=== PATIENT | female | born 1970 | race Caucasian/White ===

== ENCOUNTER 2016-08-19 20:16 | Emergency (ER) | payer OTHER ==
[~2016-08-19] VITALS: Ht 172.7 cm; Wt 75.9 kg
[2016-08-19 20:29] VITALS: TEMP 36.8; Ht 172.7 cm; Wt 75.9 kg
[2016-08-19] MEDS ORDERED: ASPI325T39 PO (20:45)
[2016-08-19] MEDS ORDERED: MULT-513 PO (20:45)
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
[2016-08-19 22:24] VITALS: BP 128/76; PULSE 89; O2SAT 99
== END 2016-08-19 22:26 | disposition home or self-care (01) ==
LOC: C.EDB 20:18 → C.EDD 22:26
DX: S09.92XA Unspecified injury of nose, initial encounter (principal); X58.XXXA Exposure to other specified factors, initial encounter

== ENCOUNTER 2017-10-06 13:35 | Emergency (ER) | payer OTHER ==
[~2017-10-06 13:35] MED LIST: ASPI325T39 PO; MULT-513 PO
[2017-10-06 13:36] VITALS: TEMP 36.5
[2017-10-06] MEDS ORDERED: KETOROLAC TROMETHAMINE 30 MG/ML VIAL IV STA (13:57)
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
[2017-10-06 14:19] LABS: BASO % 0.3 %; BASO ABS # 0.02 K/uL (0-0.2); EOS % 1.2 %; EOS ABS # 0.09 K/uL (0-0.5); HEMATOCRIT 38.7 % (37-47); HEMOGLOBIN 13.6 g/dL (12.0-16.0); IG# 0.01 K/uL (0.00-0.02); LYMPH % 10.1 %; LYMPH ABS # 0.77 K/uL (1.2-3.4); MEAN CELL VOLUME 86.8 fL (80-100); MEAN CORPUSCULAR HEMOGLOBIN 30.5 pg (25-34); MEAN CORPUSCULAR HGB CONC 35.1 g/dl (32-36); MEAN PLATELET VOLUME 9.3 fL (7.4-10.4); MONO % 4.7 %; MONO ABS # 0.36 K/uL (0.11-0.59); NEUT % 83.6 %; NEUT ABS # 6.37 K/uL (1.4-6.5); PLATELET COUNT 293 K/uL (130-400); RED CELL DISTRIBUTION WIDTH CV 13.3 % (11.5-14.5); RED CELL DISTRIBUTION WIDTH SD 42.7 fL (36.4-46.3); WHITE BLOOD COUNT 7.62 K/uL (4.8-10.8)
[2017-10-06 14:38] LABS: BLOOD UREA NITROGEN 12 mg/dl (7-18); CALCIUM 8.9 mg/dl (8.5-10.1); CARBON DIOXIDE 27 mmol/L (21-32); CREATININE 0.89 mg/dl (0.60-1.20); GLUCOSE 134 mg/dl (70-99); SODIUM 138 mmol/L (136-145)
[2017-10-06] MEDS ORDERED: CYCL10TA6 PO (14:54)
[2017-10-06 15:11] VITALS: BP 144/82; PULSE 76; O2SAT 99
== END 2017-10-06 15:12 | disposition home or self-care (01) ==
LOC: C.EDB 13:36 → C.EDC 15:12
DX: M54.2 Cervicalgia (principal)